=== PATIENT | male | born 1985 | race Caucasian/White ===

== ENCOUNTER 2019-12-18 10:03 | Emergency (ER) | payer BC ==
[~2019-12-18] VITALS: Ht 182.9 cm; Wt 88.5 kg
[2019-12-18] MEDS ORDERED: ADDERALL 10 MG10 MG PO (10:23)
[2019-12-18 10:38] LABS: ABSOLUTE NEUTROPHILS 3.4 thou/uL (1.4-8.2); BASOPHILS 0.8 % (0.0-2.0); EOSINOPHILS 1.4 % (0.0-3.0); HEMATOCRIT 43.2 % (42.0-52.0); HEMOGLOBIN 14.7 gm/dL (14.0-18.0); MCH 29.1 pg (26.0-34.0); MCV 85.7 fL (80.0-100.0); MONOCYTES 5.9 % (1.0-8.0); PLATELET COUNT 227 thou/uL (150-400); POLYS 58.9 % (36.0-66.0); RBC 5.04 mil/uL (4.50-6.00); RDW 13.2 % (10.5-14.5); WBC 5.8 thou/uL (4.0-11.0)
[2019-12-18 10:48] LABS: CALCIUM 8.8 mg/dL (8.5-10.1); CREATININE 1.2 mg/dL (0.7-1.3); POTASSIUM 4.3 mmol/L (3.5-5.1)
[2019-12-18 10:54] LABS: ALBUMIN 4.2 g/dL (3.4-5.0); TOTAL BILIRUBIN 0.6 mg/dL (<0.1-1.0); TOTAL PROTEIN 7.8 g/dL (6.4-8.2)
[2019-12-18 12:22] LABS: URINE BILIRUBIN NEGATIVE (Negative); URINE BLOOD 2+ (Negative); URINE CLARITY CLEAR; URINE COLOR YELLOW; URINE GLUCOSE-RANDOM* NEGATIVE (Negative); URINE KETONES NEGATIVE (Negative); URINE LEUKOCYTES-REFLEX NEGATIVE (Negative); URINE NITRITE-REFLEX NEGATIVE (Negative); URINE PROTEIN (DIPSTICK) NEGATIVE (Negative); URINE UROBILINOGEN 0.2 E.U./dl (0.2-1.0)
[2019-12-18 12:52] LABS: SQUAMOUS None Seen /LPF (0-3)
[2019-12-18 12:53] LABS: BACTERIA-REFLEX 1-9 Few /HPF (None Seen); CASTS None Seen /LPF (None Seen); CRYSTALS None Seen /LPF (None Seen); URINE RBC >20 Many /HPF (0-2); URINE WBC-REFLEX 0-5 Rare /HPF (0-5)
[2019-12-18] MEDS ORDERED: FLOMAX0.4 MG PO (14:22)
[2019-12-18] MEDS ORDERED: ONDANSETRON HCL4 M2 PO (14:22)
[2019-12-18] MEDS ORDERED: NORCO 10-325 T1 EACH PO (14:24)
[2019-12-18] MEDS ORDERED: LEVAQUIN 500 M500 M2 PO (14:24)
[2019-12-18 14:33] VITALS: BP 110/68
== END 2019-12-18 14:34 | disposition home or self-care (01) ==
LOC: ER 10:03
PROVIDERS: Emergency Medicine
DX: K80.20 Calculus of gallbladder without cholecystitis without obstruction (principal); Z87.891 Personal history of nicotine dependence